=== PATIENT | male | born 1940 | race African-American/Black ===

== ENCOUNTER 2021-03-27 02:12 | Day surgery (SDC) | payer MEDICARE, SELFPAY ==
[2021-03-17 09:38] VITALS: BMI 40.1
[2021-03-27 09:15] VITALS: BP 152/86; PULSE 70; RESP 20; O2SAT 97; BMI 40.5
[2021-03-27] MEDS: LACTATED RINGERS 1,000 ML 150 ML IV CONT (09:43)
--- NOTE | 2021-03-27 10:07 | WPDGICN ---
Assessment and Plan Assessment and plan (1) Encounter for screening colonoscopy: Code(s): Z12.11 - Encounter for screening for malignant neoplasm of colon Status: Acute Assessment and Plan: Patient presents for screening colonoscopy. He denies prior abdominal complaints. No bleeding or change in bowel habits. Further recommendations will be given after endoscopy. GI Consult Note Consult date/time: 03/27/21 10:07 HPI: Preston Swan is a 80 year old male Seen in referral from Dr. Saravanan Hernandez. Patient referred for neoplasia screening. Patient's current weight appetite bowel movements are normal. He denies diarrhea. States his bowel habits are regular. He denies any blood in his stools. Family history noncontributory. neoplasia screening is requested will be performed. Review of Systems Review of Systems: All systems reviewed & are unremarkable except as noted in HPI and below PMFSH Social History Social History Years smoked: 20 Smoking status: Former smoker Tobacco type: pipe Living arrangements: alone Spiritual care concerns: No Meds Home Medications and Allergies Home Medications Medication Instructions Recorded Confirmed Type amlodipine 10 mg PO DAILY 03/17/21 03/27/21 History aspirin 325 mg PO DAILY 03/17/21 03/27/21 History [id number] 1 tablet PO BID 03/17/21 03/27/21 History [Osteo Bi-Flex Triple Strength] hydrochlorothiazide 25 mg PO DAILY 03/17/21 03/27/21 History losartan 100 mg PO DAILY 03/17/21 03/27/21 History lovastatin 40 mg PO DAILY 03/17/21 03/27/21 History Allergies Allergy/AdvReac Type Severity Reaction Status Date / Time No Known Allergies Allergy Verified 03/27/21 09:12 Vital Signs Vital Signs - 24 hr 03/27/21 09:15 Pulse Rate 70 Respiratory Rate 20 Blood Pressure 152/86 H Pulse Oximetry 97 Exam Narrative: Exam Narrative: Physical exam reveals patient be alert. Vital signs stable. HEENT exam is unremarkable. Patient is anicteric. Lungs are clear to auscultation and percussion. Heart is without murmur or extra sounds. Abdominal exam bowel sounds are present soft nontender with no hepatosplenomegaly digital external rectal exam is normal.
--- NOTE | 2021-03-27 10:32 | WPDANESEPPF ---
Anes - Initial Pre Proc Eval Procedure: Operation Date: 03/27/21 10:15 Proposed Procedures p Screening Colonoscopy - Albert Rothman MD Date/Time: 03/27/21 10:32 Surgeon: Albert Rothman MD Pre Op Diagnosis: neoplasm screening Patient Data Age: 80 Gender: M Height: 1.78 m Weight: 128.2 kg Last Vital Signs Pulse 70 03/27/21 09:15 Resp 20 03/27/21 09:15 BP 152/86 H 03/27/21 09:15 Pulse Ox 97 03/27/21 09:15 Allergies Allergy/AdvReac Type Severity Reaction Status Date / Time No Known Allergies Allergy Verified 03/27/21 09:12 Home Medications Medication Instructions Recorded Confirmed Type amlodipine 10 mg PO DAILY 03/17/21 03/27/21 History aspirin 325 mg PO DAILY 03/17/21 03/27/21 History [id number]-[id number] 1 tablet PO BID 03/17/21 03/27/21 History [Osteo Bi-Flex Triple Strength] hydrochlorothiazide 25 mg PO DAILY 03/17/21 03/27/21 History losartan 100 mg PO DAILY 03/17/21 03/27/21 History lovastatin 40 mg PO DAILY 03/17/21 03/27/21 History Patient hx anesthesia problems: none Family hx anesthesia problems: none [facility] Past Medical History Medical History (Updated 03/27/21 @ 10:31 by Maxime Gray MD) Hyperlipidemia Hypertension Social History Social History Years smoked: 20 Smoking status: Former smoker Tobacco type: pipe Living arrangements: alone Spiritual care concerns: No Anes - Eval Final PreProcedure Day of Procedure 03/27/21 10:32 Patient weight: morbidly obese Heart: regular rate and rhythm Lungs: clear to auscultation Airway: Mallampati scale class III Neurological: alert and oriented Last oral intake: >/= 8 hours ASA classification: III Emergent: no Anesthetic plan: proceed Anesthesia type and monitoring: general GIVS and standard monitoring Informed Consent: The patient's anesthetic plan and its attendant risks and benefits were discussed with the patient/family/POA. Questions were solicited and answers provided to the satisfaction of the patient/family/POA.
[2021-03-27 11:34] VITALS: BP 94/40; PULSE 67; RESP 20; O2SAT 95
[2021-03-27 11:44] VITALS: BP 112/62; PULSE 68; RESP 20; O2SAT 96
[2021-03-27 11:54] VITALS: BP 114/69; PULSE 64; RESP 18; O2SAT 96
[2021-03-27 12:04] VITALS: BP 119/93; PULSE 66; RESP 16; O2SAT 98
== END 2021-03-27 12:35 | disposition home or self-care (01) ==
PROVIDERS: PCP Internal Medicine; Visit Provider Internal Medicine Gastroenterology
PROC: 0DJD8ZZ Inspection of Lower Intestinal Tract, Via Natural or Artificial Opening Endoscopic (ICD-10-PCS; CPT 45378; principal; 2021-03-27 10:15)
DX: Z12.11 Encounter for screening for malignant neoplasm of colon (principal); D12.2 Benign neoplasm of ascending colon; D12.3 Benign neoplasm of transverse colon; K64.8 Other hemorrhoids; K63.5 Polyp of colon; F12.90 Cannabis use, unspecified, uncomplicated; Z79.82 Long term (current) use of aspirin; I10 Essential (primary) hypertension; E78.5 Hyperlipidemia, unspecified; E66.01 Morbid (severe) obesity due to excess calories; Z68.41 Body mass index [BMI] 40.0-44.9, adult
CPT/HCPCS: 45385; 88305; J2704; J7120

== ENCOUNTER 2021-07-12 00:03 | Emergency (ER) | payer MEDICARE, SELFPAY ==
--- NOTE | ~2021-07-12 | XR_ITS ---
EXAMINATION: XR shoulder RT min 2V INDICATION: Right shoulder pain TECHNIQUE: Four views of the right shoulder are submitted. COMPARISON: None FINDINGS: Normal alignment. No fracture. 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 Soft tissues are unremarkable. IMPRESSION: 1. No acute osseous abnormality. Reviewed, dictated and finalized at location A.
[2021-07-12 00:06] VITALS: BP 165/95; PULSE 89; RESP 20; TEMP 36.7; O2SAT 99
--- NOTE | 2021-07-12 00:50 | ED.GENADULT ---
HPI - General Adult General Chief complaint: Extremity Injury, Upper Stated complaint: Right arm pain for 3 weeks Time Seen by Provider: 07/12/21 00:44 History of Present Illness HPI narrative: Patient 80-year-old gentleman who presents the emergency department with chief complaint of right shoulder pain. The patient reports for the last 3 weeks has had pain at the head of the humerus on the right side. The patient states is only in certain positions states is more of a sharp aching pain patient states he has no trauma reports no pain in his chest denies shortness of breath denies pain in the clavicle or in the scapular area. Patient reports that has not seen his primary care physician. Patient denies numbness or tingling in the hand. Related Data Home Medications Medication Instructions Recorded Confirmed amlodipine 10 mg PO DAILY 03/17/21 03/27/21 aspirin 325 mg PO DAILY 03/17/21 03/27/21 [id number] 1 tablet PO BID 03/17/21 03/27/21 [Osteo Bi-Flex Triple Strength] hydrochlorothiazide 25 mg PO DAILY 03/17/21 03/27/21 losartan 100 mg PO DAILY 03/17/21 03/27/21 lovastatin 40 mg PO DAILY 03/17/21 03/27/21 Allergies Allergy/AdvReac Type Severity Reaction Status Date / Time No Known Allergies Allergy Verified 07/12/21 00:12 Review of Systems Review of Systems: A 10 system review of systems was completed on the patient and is negative except for what is stated in the HPI. Nursing and ancillary documentation was reviewed. PMFSH Past Medical History Medical History Hyperlipidemia Hypertension Social History Social History Years smoked: 20 Smoking status: Former smoker Tobacco type: pipe Spiritual care concerns: No Exam Narrative: GENERAL: Well-appearing, well-nourished, and in no acute distress. HEAD: Normocephalic, atraumatic. EYES: PERRLA and EOMI. ENT: Nares clear, no rhinorrhea or epistaxis. Mucous membranes moist. NECK: Supple. CHEST: Clear to auscultation. No respiratory distress. HEART: Regular rate and rhythm. No murmur heard. Normal peripheral pulses. ABDOMEN: Soft, nontender, nondistended, normal active bowel sounds. EXTREMITIES: Normal range of motion. No edema. Tenderness to palpation in the right humeral area. SKIN: Warm, dry, no rash. NEURO: No focal deficits. Alert and oriented x3. PSYCH: Normal mood and affect. Course Course Emergency Course: Plain film x-ray showed no evidence of fracture Vital Signs Vital signs: Vital Signs Temperature 36.7 C 07/12/21 00:06 Pulse Rate 89 07/12/21 00:06 Respiratory Rate 20 07/12/21 00:06 Blood Pressure 165/95 H 07/12/21 00:06 Pulse Oximetry 99 07/12/21 00:06 Temperature 36.7 C 07/12/21 00:06 Pulse Rate 89 07/12/21 00:06 Respiratory Rate 20 07/12/21 00:06 Blood Pressure 165/95 H 07/12/21 00:06 Pulse Oximetry 99 07/12/21 00:06 Medical Decision Making Vital Signs Vital Signs: Vital Signs Temperature 36.7 C 07/12/21 00:06 Pulse Rate 89 07/12/21 00:06 Respiratory Rate 20 07/12/21 00:06 Blood Pressure 165/95 H 07/12/21 00:06 Pulse Oximetry 99 07/12/21 00:06 Temperature 36.7 C 07/12/21 00:06 Pulse Rate 89 07/12/21 00:06 Respiratory Rate 20 07/12/21 00:06 Blood Pressure 165/95 H 07/12/21 00:06 Pulse Oximetry 99 07/12/21 00:06 Discharge Plan Discharge Clinical Impression: Acute pain of right shoulder Patient Disposition: Home, Self-Care Condition: Stable Instructions: Antibiotic Form, Shoulder Pain (ED) Prescriptions: New diclofenac potassium 50 mg tablet 50 mg PO TID PRN (Reason: pain) Qty: 30 RF: 0 No Action aspirin 325 mg Tablet 325 mg PO DAILY RF: 0 lovastatin 40 mg tablet 40 mg PO DAILY RF: 0 amlodipine 10 mg tablet 10 mg PO DAILY RF: 0 hydrochlorothiazide 25 mg tab
[2021-07-12] MEDS: IBUPROFEN 600 MG TABLET PO (00:58)
== END 2021-07-12 01:04 | disposition home or self-care (01) ==
PROVIDERS: Emergency Provider Emergency Medicine; PCP Internal Medicine
DX: M25.511 Pain in right shoulder (principal); E78.5 Hyperlipidemia, unspecified; I10 Essential (primary) hypertension; Z79.82 Long term (current) use of aspirin; Z87.891 Personal history of nicotine dependence
CPT/HCPCS: 73030; 99283; A9270